=== PATIENT | female | born 1970 | race African-American/Black ===

== ENCOUNTER 2017-09-28 09:47 | Observation (INO) | payer SELFPAY ==
[2017-09-28] MEDS ORDERED: ONDANSETRON 4 MG TAB.RAPDIS PO ONE (10:09)
[2017-09-28] MEDS ORDERED: NORMAL SALINE 1000 ML 1,000 ML IV ONE (10:09)
[2017-09-28] MEDS ORDERED: ACETAMINOPHEN 325 MG TABLET PO ONE (10:09)
--- NOTE | 2017-09-28 10:11 | ER Document Report ---
ED Medical Screen (RME) - General Chief Complaint: Abdominal Pain Stated Complaint: ABDOMINAL PAIN Time Seen by Provider: 09/28/17 10:07 Mode of Arrival: Wheelchair Information source: Patient Notes: 46 yr old female presents with complaints of RUQ pain as of 730 this morning associated with nausea denies any fevers or chills , denies any previous abd pain I have greeted and performed a rapid initial assessment of this patient. A comprehensive ED assessment and evaluation of the patient, analysis of test results and completion of the medical decision making process will be conducted by additional ED providers. PHYSICAL EXAMINATION: GENERAL: Well-appearing, well-nourished and in acute distress. HEAD: Atraumatic, normocephalic. EYES: Pupils equal round extraocular movements intact, conjunctiva are normal. ENT: Nares patent NECK: Normal range of motion LUNGS: No respiratory distress Musculoskeletal: Normal range of motion NEUROLOGICAL: Normal speech, normal gait. PSYCH: Normal mood, normal affect. SKIN: Warm, Dry, normal turgor, no rashes or lesions noted. TRAVEL OUTSIDE OF THE [place] IN LAST 30 DAYS: No - Related Data Allergies/Adverse Reactions: latex Allergy (Verified 09/28/17 09:49) Penicillins Allergy (Verified 09/28/17 09:49) Physical Exam - Vital signs Vitals: Temp Pulse Resp BP Pulse Ox 97.8 F 74 22 H 119/52 L 98 09/28/17 09:53 09/28/17 09:53 09/28/17 09:53 09/28/17 09:53 09/28/17 09:53 Course - Vital Signs Vital signs: Temp Pulse Resp BP Pulse Ox 97.8 F 74 22 H 119/52 L 98 09/28/17 09:53 09/28/17 09:53 09/28/17 09:53 09/28/17 09:53 09/28/17 09:53
--- NOTE | 2017-09-28 11:09 | RADIOLOGY REPORT (SQ) ---
EXAM DESCRIPTION: U/S ABDOMEN LIMITED W/O DOP COMPLETED DATE/TIME: 09/28/2017 10:55 am REASON FOR STUDY: RUQ pain COMPARISON: None. TECHNIQUE: Dynamic and static grayscale images acquired of the abdomen and recorded on PACS. Additio nal selected color Doppler and spectral images recorded. LIMITATIONS: Midline bowel gas, body habitus FINDINGS: PANCREAS: Not visualized LIVER: No masses. Echotexture normal. LIVER VASCULATURE: Normal directional flow of the main portal vein and hepatic veins. GALLBLADDER: Multiple shadowing stones are present in the gallbladder. Borderline gallbladder wall t hickening. No pericholecystic fluid. Positive sonographic Lester's sign ULTRASOUND-DETECTED LESTER'S SIGN: Positive INTRAHEPATIC DUCTS AND COMMON DUCT: CBD and intrahepatic ducts normal caliber. No filling defects. D istal common bile duct at the duodenum not well seen. INFERIOR VENA CAVA: Normal flow. AORTA: No aneurysm. RIGHT KIDNEY: Normal size. Normal echogenicity. No solid or suspicious masses. No hydronephrosis. No calcifications. PERITONEAL AND RIGHT PLEURAL SPACE: No ascites or effusions. OTHER: No other significant findings. IMPRESSION: Multiple stones in the gallbladder. Borderline gallbladder wall thickening without carola cholecystic fluid. Positive sonographic Lester's sign TECHNICAL DOCUMENTATION: JOB ID: [id number] [employer]- All Rights Reserved Reading location - IP/workstation name: [email or web address]
[2017-09-28] MEDS ORDERED: FENTANYL CITRATE INJ/PF 100 MCG/2 ML AMPUL IV ONE (11:20)
--- NOTE | 2017-09-28 11:21 | ER Document Report ---
ED GI/ - General Chief Complaint: Abdominal Pain Stated Complaint: ABDOMINAL PAIN Time Seen by Provider: 09/28/17 10:07 Mode of Arrival: Wheelchair Information source: Patient Notes: Patient presents complaining of right upper quadrant abdominal pain that started at 730 this morning. Patient reports nausea and vomiting 2 episodes. Patient denies any fever or diarrhea. Patient denies any cough or urinary symptoms. TRAVEL OUTSIDE OF THE [place] IN LAST 30 DAYS: No - HPI Patient complains to provider of: Abdominal pain, Vomiting. No: Diarrhea Onset: This morning Timing/Duration: Persistent Quality of pain: Achy Pain Level: 3 Location: RUQ Vaginal bleeding (Compared to normal period): None Associated symptoms: Loss of appetite, Vomiting. denies: Chest pain, Dysuria, Fever, Urinary hesitancy, Urinary frequency, Urinary retention, Urinary urgency , Vaginal discharge Exacerbated by: Denies Relieved by: Denies Similar symptoms previously: No Recently seen / treated by doctor: No - Related Data Allergies/Adverse Reactions: latex Allergy (Verified 09/28/17 09:49) Penicillins Allergy (Verified 09/28/17 09:49) Past Medical History - General Information source: Patient - Social History Smoking Status: Never Smoker Chew tobacco use (# tins/day): No Frequency of alcohol use: Occasional Drug Abuse: None Occupation: None Lives with: Family Family History: Reviewed & Not Pertinent Patient has suicidal ideation: No Patient has homicidal ideation: No Neurological Medical History: Reports: Other - Tremor Renal/ Medical History: Denies: Hx Peritoneal Dialysis Past Surgical History: Reports: Hx Hysterectomy Review of Systems - Review of Systems Constitutional: No symptoms reported. denies: Fever, Recent illness EENT: No symptoms reported Cardiovascular: No symptoms reported. denies: Chest pain Respiratory: No symptoms reported. denies: Cough, Hemoptysis, Short of breath Gastrointestinal: Abdominal pain, Nausea, Vomiting. denies: Diarrhea Genitourinary: No symptoms reported. denies: Dysuria, Flank pain Female Genitourinary: No symptoms reported Musculoskeletal: No symptoms reported. denies: Back pain Skin: No symptoms reported Hematologic/Lymphatic: No symptoms reported Neurological/Psychological: No symptoms reported. denies: Headaches Physical Exam - Vital signs Vitals: Temp Pulse Resp BP Pulse Ox 97.8 F 74 22 H 119/52 L 98 09/28/17 09:53 09/28/17 09:53 09/28/17 09:53 09/28/17 09:53 09/28/17 09:53 - General General appearance: Appears well, Alert In distress: None - HEENT Head: Normocephalic, Atraumatic Eyes: Normal Conjunctiva: Normal Nasal: Normal Mouth/Lips: Normal Mucous membranes: Normal Pharynx: Normal Neck: Normal, Supple. No: Lymphadenopathy - Respiratory Respiratory status: No respiratory distress Chest status: Nontender Breath sounds: Normal. No: Rales, Rhonchi, Stridor, Wheezing Chest palpation: Normal - Cardiovascular Rhythm: Regular Heart sounds: S1 appreciated, S2 appreciated Murmur: No - Abdominal Inspection: Obese Distension: No distension Bowel sounds: Normal Tenderness: Tender - RUQ Organomegaly: No organomegaly - Back Back: Normal, Nontender. No: CVA tenderness - Extremities General upper extremity: Normal inspection, Normal ROM General lower extremity: Normal inspection, Normal ROM - Neurological Neuro grossly intact: Yes Cognition: Normal Natasha Coma Scale Eye Opening: Spontaneous Buford Coma Scale Verbal: Oriented Buford Coma Scale Motor: Obeys Commands Natasha Coma Scale Total: 15 - Psychological Associated symptoms: Normal affect, Normal mood - Skin Skin Temperature: Warm Skin Moisture: Dry Skin Color: Normal Course - Re-evaluation Re-evalutation: 09/28/17 11:[address] Johnson regarding patient presentation and diagnostic evaluation. Advises starting clindamycin IV and suspects that patient will be placed on the surgical schedule today. Will be by to see patient shortly. Patient updated regarding diagnostic evaluation and plan of care. - Vital Signs Vital signs: Temp Pulse Resp BP Pulse Ox 97.6 F 65 15 124/66 96 09/28/17 16:10 09/28/17 16:10 09/28/17 16:10 09/28/17 16:10 09/28/17 16:10 - Laboratory Result Diagrams: 09/28/17 10:52 09/28/17 10:52 Laboratory results interpreted by me: 09/28/17 10:52 Glucose 115 H Labs- Entire Visit 09/28/17 09/28/17 10:52 10:52 WBC 6.5 RBC 4.67 Hgb 13.8 Hct 41.0 MCV 88 MCH 29.6 MCHC 33.7 RDW 14.0 Plt Count 214 Seg Neutrophils % 58.4 Lymphocytes % 33.4 Monocytes % 6.2 Eosinophils % 1.3 Basophils % 0.7 Absolute Neutrophils 3.8 Absolute Lymphocytes 2.2 Absolute Monocytes 0.4 Absolute Eosinophils 0.1 Absolute Basophils 0.0 Sodium 144.1 Potassium 3.8 Chloride 103 Carbon Dioxide 28 Anion Gap 13 BUN 13 Creatinine 0.75 Est GFR ( Amer) > 60 Est GFR (Non-Af Amer) > 60 Glucose 115 H Calcium 9.0 Total Bilirubin 0.8 Direct Bilirubin 0.4 Neonat Total Bilirubin Not Reportable Neonat Direct Bilirubin Not Reportable Neonat Indirect Bili Not Reportable AST 34 ALT 20 Alkaline Phosphatase 101 Total Protein 7.9 Albumin 4.0 Lipase 77.4 - Diagnostic Test Radiology reviewed: Reports reviewed Discharge - Discharge Clinical Impression: Cholecystitis Abdominal pain Qualifiers: Abdominal location: right upper quadrant Qualified Code(s): R10.11 - Right upper quadrant pain Condition: Stable Disposition: ADMITTED INPATIENT Admitting Provider: Surgicalist Unit Admitted: Medical Floor
[2017-09-28 11:22] LABS: ABSOLUTE EOSINOPHILS # (AUTO) 0.1 10^3/uL (0.0-0.6); ABSOLUTE LYMPHOCYTES (AUTO) 2.2 10^3/uL (0.5-4.7); ABSOLUTE MONOCYTES (AUTO) 0.4 10^3/uL (0.1-1.4); ABSOLUTE NEUT (AUTO) 3.8 10^3/uL (1.7-8.2); BASOPHILS % (AUTO) 0.7 % (0-2); EOSINOPHILS % (AUTO) 1.3 % (0-6); HEMOGLOBIN 13.8 g/dL (12.0-15.5); LYMPHOCYTES % (AUTO) 33.4 % (13-45); MEAN CORPUSCULAR HEMOGLOBIN 29.6 pg (27.0-33.4); MEAN CORPUSCULAR HGB CONC 33.7 g/dL (32.0-36.0); MEAN CORPUSCULAR VOLUME 88 fl (80-97); MONOCYTES % (AUTO) 6.2 % (3-13); PLATELET COUNT 214 10^3/uL (150-450); RED BLOOD COUNT 4.67 10^6/uL (3.72-5.28); SEGMENTED NEUTROPHILS % (AUTO) 58.4 % (42-78); TOTAL CELLS COUNTED % (AUTO) 100 %; WHITE BLOOD COUNT 6.5 10^3/uL (4.0-10.5)
[2017-09-28 11:43] LABS: ALANINE AMINOTRANSFERASE 20 U/L (9-52); ALKALINE PHOSPHATASE 101 U/L (38-126); ANION GAP 13 (5-19); ASPARTATE AMINO TRANSFERASE 34 U/L (14-36); BILIRUBIN,DIRECT 0.4 mg/dL (0.0-0.4); BILIRUBIN,TOTAL 0.8 mg/dL (0.2-1.3); BLOOD UREA NITROGEN 13 mg/dL (7-20); CARBON DIOXIDE 28 mmol/L (22-30); CHLORIDE 103 mmol/L (98-107); GLUCOSE 115 mg/dL (75-110); LIPASE 77.4 U/L (23-300); POTASSIUM 3.8 mmol/L (3.6-5.0); SODIUM 144.1 mmol/L (137-145); TOTAL PROTEIN 7.9 g/dL (6.3-8.2)
[2017-09-28] MEDS ORDERED: CLINDAMYCIN 600 MG/D5W RTU 600 MG/50 ML RTUPB IV ONE (11:54)
[2017-09-28] MEDS ORDERED: RINGERS SOLUTION,LACTATED 1,000 ML IV ONE (11:59)
[2017-09-28] MEDS ORDERED: KETOROLAC TROMETHAMINE INJ/PF 30 MG/1 ML SDV IV PRN ×2 (13:41→20:12)
--- NOTE | 2017-09-28 13:47 | PDOC H&P ---
History of Present Illness Admission Date/PCP: 09/28/17 12:22 Patient complains of: Abdominal pain History of Present Illness: TOAN DELGADILLO is a 46 year old female Who presents emergency department complaining of acute onset abdominal postprandial approximately 3:00 this morning. This is associated with nausea and no significant change in bowel habits. Because of persisting pain she came to the emergency department where she was found to have right upper quadrant tenderness, and a gallbladder ultrasound was obtained which showed cholelithiasis. Surgery was consulted and the patient was advised admission. Patient has a family history of gallbladder disease. Past Medical History Past Medical History: Hand tremor; Past Surgical History Past Surgical History: Reports: Hysterectomy Social History Information Source: Patient Lives with: Family Smoking Status: Never Smoker Frequency of Alcohol Use: Rare Hx Recreational Drug Use: No Hx Prescription Drug Abuse: No Family History Parental Family History Reviewed: Yes Children Family History Reviewed: Yes Sibling(s) Family History Reviewed.: Yes Medication/Allergy Allergies/Adverse Reactions: latex Allergy (Verified 09/28/17 09:49) Penicillins Allergy (Verified 09/28/17 09:49) Review of Systems Constitutional: ABSENT: chills, fever(s), headache(s), weight gain, weight loss Eyes: ABSENT: visual disturbances Ears: ABSENT: hearing changes Cardiovascular: ABSENT: chest pain, dyspnea on exertion, edema, orthropnea, palpitations Respiratory: ABSENT: cough, hemoptysis Gastrointestinal: PRESENT: as per HPI, bloating, coffee ground emesis, dysphagia , heartburn, melena, other. ABSENT: abdominal pain, constipation, diarrhea, hematemesis, hematochezia, nausea, vomiting Genitourinary: ABSENT: dysuria, hematuria Musculoskeletal: ABSENT: joint swelling Physical Exam Vital Signs: Temp Pulse Resp BP Pulse Ox 97.8 F 74 22 H 119/52 L 98 09/28/17 09:53 09/28/17 09:53 09/28/17 09:53 09/28/17 09:53 09/28/17 09:53 General appearance: PRESENT: no acute distress Head exam: PRESENT: normocephalic Eye exam: PRESENT: EOMI Mouth exam: PRESENT: dry mucosa Neck exam: PRESENT: full ROM Respiratory exam: PRESENT: clear to auscultation kimmie Cardiovascular exam: PRESENT: RRR Pulses: PRESENT: normal carotid pulses, normal radial pulses, normal femoral pulses GI/Abdominal exam: PRESENT: other - Tender right upper quadrant with mild guarding; no no peritoneal signs otherwise Extremities exam: PRESENT: full ROM Musculoskeletal exam: PRESENT: ambulatory Neurological exam: PRESENT: alert, awake, oriented to person, oriented to place Psychiatric exam: PRESENT: appropriate affect Results Impressions: Abdomen Ultrasound 09/28/17 10:10 IMPRESSION: Multiple stones in the gallbladder. Borderline gallbladder wall thickening without pericholecystic fluid. Positive sonographic Lester's sign Status: Imported from PACS Assessment & Plan - Diagnosis (1) Cholecystitis Is this a current diagnosis for this admission?: Yes Plan: Patient's clinical picture, radiographic imaging all consistent with symptomatic cholelithiasis with cholecystitis. Recommendations: Laparoscopic cholecystectomy, possible open, 1 hour, [facility], main operating room, general anesthesia; we discussed the risks benefits and alternatives of planned procedure including bleeding, infection, bile duct injury, bile leak, need for additional surgery. Patient is not at increased risk for any these known potential complications. Versus understanding and agrees to proceed. She will likely be admitted overnight and discharged home tomorrow. Return to work status also discussed with the patient. - Time Time Spent: 50 to 70 Minutes Critical Time spent with patient: 15-24 minutes Medications reviewed and adjusted accordingly: Yes Anticipated discharge: Home - Inpatient Certification Based on my medical assessment, after consideration of the patient's comorbidities, presenting symptoms, or acuity I expect that the services needed warrant INPATIENT care.: Yes I certify that my determination is in accordance with my understanding of Medicare's requirements for reasonable and necessary INPATIENT services [42 CFR 412.3e].: Yes Medical Necessity: Need For IV Fluids, Need for Pain Control, Need for IV Antibiotics, Need for Surgery
[2017-09-28] MEDS ORDERED: VECURONIUM BROMIDE INJ 10 MG VIAL IV ONE (14:17)
[2017-09-28] MEDS ORDERED: GLYCOPYRROLATE INJ 0.4 MG/2 ML VIAL ONE (14:17)
[2017-09-28] MEDS ORDERED: ONDANSETRON HCL INJ/PF 4 MG/2 ML SDV ONE (14:17)
[2017-09-28] MEDS ORDERED: SUCCINYLCHOLINE CHLORIDE INJ 200 MG/10 ML VIAL ONE (14:17)
[2017-09-28] MEDS ORDERED: KETOROLAC TROMETHAMINE 60 MG/2 ML SDV ONE (14:17)
[2017-09-28] MEDS ORDERED: NEOSTIGMINE METHYLSULFATE 10 MG/10 ML VIAL ONE (14:17)
[2017-09-28] MEDS ORDERED: LIDOCAINE 2% INJ-PF (20 MG/ML) 10 ML AMPUL ONE (18:27)
[2017-09-28] MEDS ORDERED: FENTANYL CITRATE INJ/PF 100 MCG/2 ML AMPUL ONE ×3 (18:27→20:16)
[2017-09-28] MEDS ORDERED: DEXAMETHASONE SOD PHOSPHATE INJ 4 MG/1 ML VIAL ONE (18:28)
[2017-09-28] MEDS ORDERED: PROPOFOL INJ 200 MG/20 ML VIAL IV ONE (18:28)
[2017-09-28] MEDS ORDERED: MIDAZOLAM 2 MG/2 ML INJ ONE (18:28)
[2017-09-28] MEDS ORDERED: ACETAMINOPHEN 1,000 MG/100 ML RTUPB IV ONE ×2 (18:28→18:29)
[2017-09-28] MEDS ORDERED: BUPIVACAINE HCL 0.25 % INJ/PF (2.5 MG/1 ML) 30 ML VIAL ONE (19:07)
[2017-09-28] MEDS ORDERED: CLINDAMYCIN PHOSPHATE INJ 300 MG/2 ML SDV ONE (19:18)
[2017-09-28] MEDS ORDERED: DIPHENHYDRAMINE HCL 50 MG/ML VIAL IV PRN (19:39)
[2017-09-28] MEDS ORDERED: MORPHINE SULFATE 10 MG/ML INJ IV PRN (19:39)
[2017-09-28] MEDS ORDERED: PROMETHAZINE HCL INJ 25 MG/1 ML VIAL IV PRN ×2 (19:39)
[2017-09-28] MEDS ORDERED: MEPERIDINE HCL/PF INJ 25 MG/1 ML DISP.SYRIN IV PRN (19:39)
[2017-09-28] MEDS ORDERED: FENTANYL CITRATE INJ/PF 100 MCG/2 ML AMPUL IV PRN ×3 (19:39)
[2017-09-28] MEDS ORDERED: OXYCODONE-ACETAMINOPHEN 5-325 MG TABLET PO PRN ×2 (19:39)
[2017-09-28] MEDS ORDERED: ONDANSETRON HCL INJ/PF 4 MG/2 ML SDV IV PRN ×2 (19:39→20:12)
[2017-09-28] MEDS ORDERED: KETOROLAC TROMETHAMINE 10 MG TABLET PO PRN (20:12)
--- NOTE | 2017-09-28 20:20 | Operative Report ---
Operative Report DATE OF SURGERY: 09/28/17 PREOPERATIVE DIAGNOSIS: Symptomatic cholelithiasis w/ cholecystitis POSTOPERATIVE DIAGNOSIS: same OPERATION: Laparoscopic cholecystectomy SURGEON: VANE ANGUIANO ANESTHESIA: GA TISSUE REMOVED OR ALTERED: GB COMPLICATIONS: none ESTIMATED BLOOD LOSS: scant INTRAOPERATIVE FINDINGS: see below PROCEDURE: After obtaining informed consent, the patient was taken to the operating room. General Anesthesia was induced; the arms were extended, and the abdomen was exposed, and prepped and draped in a sterile fashion. Instrumentation was set up for laparoscopic cholecystectomy. Surgical plan and surgical timeout were conducted. A vertical incision was made above the umbilicus, and a verres needle was inserted uneventfully into the peritoneal cavity. Pneumoperitoneum was established. The verres needle was removed and a 5 mm trocar was inserted and a 5 mm flexible laparoscope was inserted. Visualization of the peritoneal cavity confirmed safe uneventful entry. Under direct visualization 3 additional 5 mm ports were established, one in the subxiphoid position and second in the subcostal position. Visualization of the hepatobiliary anatomy revealed no anatomic variations. A grasper was placed on the fundus of the gallbladder and the gallbladder is elevated over the right surface of the liver; a second grasper was used to grasp the infundibulum of the gallbladder. The neck of the gallbladder and junction with the cystic duct was dissected out. Photos taken; The Cystic artery was in its usual location medial and cephalad to the cystic duct. The cystic artery was surrounded with a right angle clamp, clipped twice proximally and divided with laparoscopic scissors. We now opened the triangle of Calot by dividing the peritoneal reflection on both the medial and lateral sides of the cystic duct infundibular junction. The critical view was obtained. We now milked the cystic duct of any possible stones, clipped the cystic duct approximately 2 times once distally and divided with scissors. The gallbladder was now removed from the undersurface of the liver using hook cautery dissection. Graspers were repositioned and the gallbladder was removed uneventfully from the abdominal cavity through the super umbilical port site incision. The specimen was examined, then passed off to pathology for permanent analysis. We returned to the peritoneal cavity check for bleeding and there was a small area of bleeding from the liver edge, and this was treated with surgicel; we checked for evidence of bile leak, and there was none. We Confirmed satisfactory placement of clips on cystic duct and cystic artery were secured . At this point we felt the operation was complete. The subcutaneous tissue was then anesthetized with quarter percent Marcaine Sponge and needle counts are correct. All ports removed under direct visualization pneumoperitoneum evacuated, and 5 mm port wounds closed with 3-0 Vicryl suture, benzoin and Steri -Strips. The patient was extubated, and taken to the recovery room in stable condition.
--- NOTE | 2017-09-29 09:24 | PDOC PROGRESS REPORT ---
Subjective Progress Note for:: 09/29/17 Subjective:: comfortable, tolerating po well Reason For Visit: SYMPTOMATIC CHOLELITHIASIS WITH CHOLECYSTITIS Physical Exam Vital Signs: Temp Pulse Resp BP Pulse Ox 97.9 F 71 18 106/50 L 98 09/29/17 04:00 09/29/17 04:00 09/29/17 04:00 09/29/17 04:00 09/29/17 04:00 Intake & Output 09/28/17 09/29/17 09/30/17 06:59 06:59 06:59 Intake Total 2380 Output Total 1825 Balance 555 Weight 91.3 kg General appearance: PRESENT: no acute distress Respiratory exam: PRESENT: clear to auscultation kimmie Cardiovascular exam: PRESENT: RRR GI/Abdominal exam: PRESENT: normal bowel sounds, soft, other - incisions c/d/i Results Impressions: Abdomen Ultrasound 09/28/17 10:10 IMPRESSION: Multiple stones in the gallbladder. Borderline gallbladder wall thickening without pericholecystic fluid. Positive sonographic Lester's sign Assessment & Plan - Diagnosis (1) Cholecystitis Is this a current diagnosis for this admission?: Yes (2) Abdominal pain Qualifiers: Abdominal location: right upper quadrant Qualified Code(s): R10.11 - Right upper quadrant pain Is this a current diagnosis for this admission?: Yes - Plan Summary Plan Summary: A/ POD#1 after lap heidy patient doing well PE unremarkable P/ Home today follow up in 2 weeks regular diet resume home meds resume all activities as tolerated shower only x 2 weeks, then can bathe no wound care needed Tylenol and Aleve over the counter as needed for pain
--- NOTE | 2017-09-29 09:44 | DISCHARGE SUMMARY E ---
Discharge Summary NAME: TOAN DELGADILLO : 1970 AGE: 46Y ADMITTED: 09/28/2017 DISCHARGED: 09/29/2017 FINAL DIAGNOSIS: Acute cholecystitis, cholelithiasis. PROCEDURE: On September 28, the patient underwent laparoscopic cholecystectomy COMPLICATIONS: None. HOSPITAL COURSE: This is a 46-year-old -[place] female, who presented to emergency room complaining of right upper quadrant pain. An ultrasound of the abdomen was done revealing cholelithiasis. The patient was taken to surgery same day and underwent an uneventful laparoscopic cholecystectomy. She was advanced to third floor. Her postoperative course was unremarkable. Vital signs remained stable. Physical exam was unremarkable. Abdomen soft with normal bowel sounds. Incision was clean, dry, intact. Patient was able to tolerate p.o. well. DISCHARGE ORDERS: The patient discharged home on 09/29/17. She was instructed to rest at home today. Resume all activities tomorrow including light exercise. No heavy lifting more than 10 pounds for about 2 weeks. Shower only for 2 weeks, afterwards the patient can bathe. Tylenol and Aleve [id number] p.r.n. for pain. Follow up in surgery clinic in 2 weeks. Resume regular diet and home medications as preoperatively. DICTATING PHYSICIAN: JESSY MÁRQUEZ M.D. [id number] [facility]#: [id number] ID: [id number] JOB#: [id number] ACCT: [id number] cc:Deondre FRASER M.D. > MTDD
[2017-09-29 11:29] VITALS: BP 106/50
== END 2017-09-29 13:05 | disposition home or self-care (01) ==
LOC: ER 09:47 → INTOOBSV 12:22 → EH 12:22 → UNDOADMIN 12:22 → 2N 15:10
PROVIDERS: ATTEND Surgery
PROC: 0FT44ZZ Resection of Gallbladder, Percutaneous Endoscopic Approach (ICD-10-PCS; principal; 2017-09-28 17:30)
DX: K80.10 Calculus of gallbladder with chronic cholecystitis without obstruction (principal); R10.11 Right upper quadrant pain; E66.9 Obesity, unspecified; Z68.34 Body mass index [BMI] 34.0-34.9, adult; Z90.710 Acquired absence of both cervix and uterus
CPT/HCPCS: 99285; 96361; 96365; 36415; 83690; 85025; 80053; 88304 ×2; 76705; 47562; G0378 ×3; J2250; J3490 ×3; J1100; J1885 ×2; S0119; J3010; J0330; J2405; J7030; J7120; J2704; J0131; 790

== ENCOUNTER 2018-07-21 15:26 | Emergency (ER) | payer OTHER ==
[2018-07-21] MEDS ORDERED: ACETAMINOPHEN 325 MG TABLET PO ONE (18:24)
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
[2018-07-21] MEDS ORDERED: ONDANSETRON 4 MG TAB.RAPDIS PO ONE (22:14)
[2018-07-21] MEDS ORDERED: OXYCODONE HCL IR 5 MG TABLET PO ONE (22:14)
[2018-07-21 22:24] VITALS: BP 116/63
--- NOTE | 2018-07-22 08:45 | EKG REPORT ---
SEVERITY:- BORDERLINE ECG - SINUS RHYTHM NONSPECIFIC ST-T CHANGES- INFERIOR LEADS : Confirmed by: Mauro Castanon MD 22-Jul-2018 08:44:18
== END 2018-07-21 22:26 | disposition home or self-care (01) ==
LOC: ER 15:26
DX: S09.90XA Unspecified injury of head, initial encounter (principal); S16.1XXA Strain of muscle, fascia and tendon at neck level, initial encounter; R07.9 Chest pain, unspecified; M54.9 Dorsalgia, unspecified; V43.52XA Car driver injured in collision with other type car in traffic accident, initial encounter; Z91.040 Latex allergy status; Z88.0 Allergy status to penicillin; Z90.710 Acquired absence of both cervix and uterus
CPT/HCPCS: 93005; 71046; 99284; 72110; 73590; 70450; 72125; 93010; L0120; S0119

== ENCOUNTER → 2018-08-04 | Outpatient (CLI) | payer SELFPAY ==
--- NOTE | 2018-08-04 15:10 | WOMENS IMAGING REPORT ---
EXAM DESCRIPTION: U/S THYROID/ST TIS HEAD NECK COMPLETED DATE/TIME: 08/04/2018 2:00 pm REASON FOR STUDY: E04.1 NONTOXIC SINGLE THYROID NODULE E04.1 NONTOXIC SINGLE THYROID NODULE COMPARISON: 07/21/2018 CT. TECHNIQUE: Dynamic and static gallagher-scale images acquired of the thyroid gland. Selected additional c olor/power Doppler images recorded. All images stored to PACS. LIMITATIONS: None. FINDINGS: RIGHT LOBE: Unremarkable in size measuring 4.7 x 1.2 x 1.6 cm. There is a 2.1 x 0.9 x 1.4 cm heterogeneous hypoechoic nodule within the lower pole. There is increased vascularity and graphic design intern al calcifications. No additional nodules. LEFT LOBE: Unremarkable in size measuring 4.3 x 1.3 x 1.3 cm. Homogeneous echotexture. No cystic or solid masses. ISTHMUS: Unremarkable in size measuring 4 mm. Small subcentimeter cyst. Otherwise normal echotextur e. OTHER: No other significant finding. IMPRESSION: 2.1 x 0.9 x 1.4 cm nodule within the inferior right thyroid which meet criteria for biop sy. TECHNICAL DOCUMENTATION: JOB ID: [id number] [employer]- All Rights Reserved Reading location - IP/workstation name: [email or web address]
== END ==
LOC: WI 13:59
PROVIDERS: ATTEND Nurse Practitioner Family
DX: E04.1 Nontoxic single thyroid nodule (principal)
CPT/HCPCS: 76536

== ENCOUNTER 2018-11-15 09:41 | Emergency (ER) | payer SELFPAY ==
[2018-11-15] MEDS ORDERED: KETOROLAC TROMETHAMINE INJ/PF 30 MG/1 ML SDV IV ONE (10:03)
[2018-11-15] MEDS ORDERED: ONDANSETRON HCL INJ/PF 4 MG/2 ML SDV IV ONE (10:03)
[2018-11-15] MEDS ORDERED: NORMAL SALINE 1000 ML 1,000 ML IV ONE (10:04)
--- NOTE | 2018-11-15 10:05 | ER Document Report ---
ED Medical Screen (RME) - General Chief Complaint: Flank Pain Stated Complaint: BLOOD IN URINE Time Seen by Provider: 11/15/18 10:00 Primary Care Provider: FIDEL ADAMS FNP-C [Primary Care Provider] - Follow up as needed Mode of Arrival: Ambulatory Information source: Patient Notes: Patient is a 48-year-old female presenting to the emergency department with flan k pain and blood in her urine. Patient reports blood was first noticed in her urine 3 days ago. She reports this morning she had onset of right-sided flank pain that radiates now around to her right lower quadrant. She denies any history of kidney stones. She denies any dysuria, nausea, vomiting, diarrhea or fevers. Exam: Patient appears well, nontoxic and in no acute distress. Tenderness to palpation to right lumbar paraspinous area and right lower quadrant. I have greeted and performed a rapid initial assessment of this patient. A comprehensive ED assessment and evaluation of the patient, analysis of test results and completion of the medical decision making process will be conducted by additional ED providers. I have specifically instructed the patient or family members with the patient to immediately return to any nursing staff should anything change in the patient's condition or with their chief complaint. This medical record was dictated with voice recognizing software. There may be grammatical, syntax errors that are unintended. TRAVEL OUTSIDE OF THE [place] IN LAST 30 DAYS: No - Related Data Allergies/Adverse Reactions: latex Allergy (Verified 07/21/18 21:00) Penicillins Allergy (Verified 07/21/18 21:00) Past Medical History Renal/ Medical History: Denies: Hx Peritoneal Dialysis Past Surgical History: Reports: Hx Hysterectomy Physical Exam - Vital signs Vitals: Temp Pulse Resp BP Pulse Ox 98.0 F 66 20 127/72 H 97 11/15/18 09:46 11/15/18 09:46 11/15/18 09:46 11/15/18 09:46 11/15/18 09:46 Course - Vital Signs Vital signs: Temp Pulse Resp BP Pulse Ox 98.0 F 66 20 127/72 H 97 11/15/18 09:46 11/15/18 09:46 11/15/18 09:46 11/15/18 09:46 11/15/18 09:46 Doctor's Discharge - Discharge Referrals: ADAMS,FIDEL W, [employer] PLANNING ENGINEER-C [Primary Care Provider] - Follow up as needed
[2018-11-15 10:38] LABS: APPEARANCE,URINE SLIGHTLY-CLOUDY; BILIRUBIN,URINE NEGATIVE (NEGATIVE); COLOR,URINE YELLOW; GLUCOSE, URINE NEGATIVE (NEGATIVE); KETONES,URINE NEGATIVE (NEGATIVE); LEUKOCYTE ESTERASE,URINE LARGE (NEGATIVE); NITRITE,URINE NEGATIVE (NEGATIVE); PROTEIN,URINE NEGATIVE (NEGATIVE); URINE SPECIFIC GRAVITY 1.009; UROBILINOGEN,URINE NEGATIVE mg/dL (<2.0)
[2018-11-15 10:41] LABS: ABSOLUTE BASOPHILS # (AUTO) 0.1 10^3/uL (0.0-0.2); ABSOLUTE EOSINOPHILS # (AUTO) 0.1 10^3/uL (0.0-0.6); ABSOLUTE LYMPHOCYTES (AUTO) 3.7 10^3/uL (0.5-4.7); ABSOLUTE MONOCYTES (AUTO) 0.5 10^3/uL (0.1-1.4); ABSOLUTE NEUT (AUTO) 3.6 10^3/uL (1.7-8.2); EOSINOPHILS % (AUTO) 1.3 % (0-6); HEMATOCRIT 43.5 % (36.0-47.0); HEMOGLOBIN 14.8 g/dL (12.0-15.5); LYMPHOCYTES % (AUTO) 46.2 % (13-45); MEAN CORPUSCULAR HGB CONC 33.9 g/dL (32.0-36.0); MEAN CORPUSCULAR VOLUME 89 fl (80-97); MONOCYTES % (AUTO) 6.2 % (3-13); PLATELET COUNT 216 10^3/uL (150-450); RED BLOOD COUNT 4.92 10^6/uL (3.72-5.28); RED CELL DISTRIBUTION WIDTH 14.1 % (11.5-14.0); SEGMENTED NEUTROPHILS % (AUTO) 45.3 % (42-78); TOTAL CELLS COUNTED % (AUTO) 100 %
[2018-11-15 10:43] LABS: ALBUMIN 4.7 g/dL (3.5-5.0); ALKALINE PHOSPHATASE 100 U/L (38-126); ANION GAP 12 (5-19); ASPARTATE AMINO TRANSFERASE 30 U/L (14-36); BILIRUBIN,DIRECT 0.2 mg/dL (0.0-0.4); BILIRUBIN,TOTAL 0.7 mg/dL (0.2-1.3); BLOOD UREA NITROGEN 12 mg/dL (7-20); CALCIUM 9.9 mg/dL (8.4-10.2); CARBON DIOXIDE 31 mmol/L (22-30); CHLORIDE 96 mmol/L (98-107); GLUCOSE 103 mg/dL (75-110); POTASSIUM 4.3 mmol/L (3.6-5.0); TOTAL PROTEIN 8.8 g/dL (6.3-8.2)
--- NOTE | 2018-11-15 11:39 | ER Document Report ---
ED General - General Chief Complaint: Flank Pain Stated Complaint: BLOOD IN URINE Time Seen by Provider: 11/15/18 10:00 Primary Care Provider: FIDEL ADAMS FNP-C [NO LOCAL MD] - Follow up as needed Mode of Arrival: Ambulatory TRAVEL OUTSIDE OF THE [place] IN LAST 30 DAYS: No - HPI Notes: Patient is a 48-year-old female who presents emergency department for evaluation of blood in her urine. She states is at the end of urination only, visible on the toilet paper. She denies any fevers, although she states she has been having hot and cold chills. No nausea or vomiting. Eating and drinking normally. Normal bowel movements. She states she has had some vaginal discharge. She is been self treating intermittently with yeast infection medication without any significant improvement. Her last sexual encounter was April 2012. She denies any history of STDs or vaginal lesions. - Related Data Allergies/Adverse Reactions: latex Allergy (Verified 07/21/18 21:00) Penicillins Allergy (Verified 07/21/18 21:00) Past Medical History - General Information source: Patient - Social History Smoking Status: Never Smoker Chew tobacco use (# tins/day): No Drug Abuse: None Family History: Malignancy - Breast cancer, non-Hodgkin's lymphoma, Other - SLE Patient has suicidal ideation: No Patient has homicidal ideation: No - Medical History Medical History: Negative Notes: Essential tremor Renal/ Medical History: Denies: Hx Peritoneal Dialysis Past Surgical History: Reports: Hx Hysterectomy Review of Systems - Review of Systems Constitutional: See HPI EENT: No symptoms reported Cardiovascular: No symptoms reported Respiratory: No symptoms reported Gastrointestinal: No symptoms reported Genitourinary: See HPI Female Genitourinary: See HPI Musculoskeletal: No symptoms reported Skin: No symptoms reported Neurological/Psychological: No symptoms reported Physical Exam - Vital signs Vitals: Temp Pulse Resp BP Pulse Ox 98.0 F 66 20 127/72 H 97 11/15/18 09:46 11/15/18 09:46 11/15/18 09:46 11/15/18 09:46 11/15/18 09:46 - Notes Notes: Vital signs reviewed, please refer to chart. Head is normocephalic, atraumatic. Pupils equal round, reactive to light. Neck is supple without meningismus. Heart is regular rate and rhythm. Lungs are clear to auscultation bilaterally. Abdomen is soft, nontender, normoactive bowel sounds throughout. Extremities without cyanosis, clubbing. Posterior calves are nontender. Peripheral pulses are equal. Skin is warm and dry. Patient is awake, alert, neurological exam is nonfocal. Gynecological exam performed. EVELYN Sofia, present as tour manager. Large amount of green appearing vaginal discharge noted in the vault. Cervix is closed. No cervical motion tenderness noted. Course - Re-evaluation Re-evalutation: 11/15/18 13:53 Patient presents emergency department for evaluation. Her findings are most consistent with urethritis. Urine sent for culture. We will go ahead and treat her with Bactrim. Because of the large amount of vaginal discharge, I did go ahead and empirically treat her for gonorrhea and chlamydia. Patient was notified of this. Given the large bacteria as well, will treat for bacterial vaginosis. We will send her home with a prescription for MetroGel. Otherwise she is to follow-up with primary care, return to the ED with worsening or concerning symptoms of any sort. - Vital Signs Vital signs: Temp Pulse Resp BP Pulse Ox 98.0 F 66 20 127/72 H 97 11/15/18 09:46 11/15/18 09:46 11/15/18 09:46 11/15/18 09:46 11/15/18 09:46 - Laboratory Result Diagrams: 11/15/18 10:10 11/15/18 10:10 Laboratory results interpreted by me: 11/15/18 11/15/18 11/15/18 10:10 10:10 10:10 RDW 14.1 H Lymphocytes % 46.2 H Chloride 96 L Carbon Dioxide 31 H Total Protein 8.8 H Urine Blood LARGE H Ur Leukocyte Esterase LARGE H Discharge - Discharge Clinical Impression: Urethritis, Bacterial vaginosis Condition: Stable Disposition: HOME, SELF-CARE Instructions: Urinary Tract Infection ([facility]), Vaginosis, Bacterial ([facility]) Additional Instructions: Take all the antibiotics as prescribed until gone. Stay well-hydrated. Follow- up with primary care next week. Return to the emergency department with worsening or new concerning symptoms. Referrals: FIDEL ADAMS FNP-C [NO LOCAL MD] - Follow up as needed
[2018-11-15] MEDS ORDERED: CEFTRIAXONE INJ 250 MG VIAL IV ONE (13:06)
[2018-11-15] MEDS ORDERED: AZITHROMYCIN 250 MG TABLET PO ONE (13:07)
[2018-11-15 13:18] LABS: T.VAGINALIS (WET MOUNT) NO TRICHOMONAS SEEN; YEAST (WET MOUNT) NO YEAST SEEN
[2018-11-15 13:19] LABS: BACTERIA (WET MOUNT) 3+ BACTERIA SEEN; RBCS (WET MOUNT) FEW RBCS SEEN; WBCS (WET MOUNT) 4+ WBCS SEEN
[2018-11-15 14:46] LABS: CHLAM PCR NOT DETECTED (NOT DETECT)
[2018-11-15 15:31] VITALS: BP 106/69
== END 2018-11-15 15:31 | disposition home or self-care (01) ==
LOC: ER 09:41
DX: N76.0 Acute vaginitis (principal); B96.89 Other specified bacterial agents as the cause of diseases classified elsewhere; N34.2 Other urethritis; R10.9 Unspecified abdominal pain; R31.9 Hematuria, unspecified; Z91.040 Latex allergy status; Z88.0 Allergy status to penicillin; Z90.710 Acquired absence of both cervix and uterus
CPT/HCPCS: 36415; 87086; 87210; 83690; 84703; 85025; 80053; 81001; 87491; 87591; J1885; J2405; J7030; J0696

== ENCOUNTER 2020-04-02 10:28 | Emergency (ER) | payer OTHER ==
--- NOTE | 2020-04-02 11:00 | ER Document Report ---
ED Medical Screen (RME) - General Chief Complaint: Sore Throat Stated Complaint: SORE THROAT,COUGH,SHORT OF BREATH TRAVEL OUTSIDE OF THE [place] IN LAST 30 DAYS: No - HPI Notes: 04/02/20 10:59 Rapid Medical Exam HPI: This is a 49-year-old female who presents to the ER complaining of shortness of breath and sore throat. Patient was diagnosed with Covid about 1 month ago and says her shortness of breath is continued to worsen. Denies any chest pain. She is tolerating p.o. intake. No known new sick contacts. She denies fever, chills, abdominal pain, nausea vomiting diarrhea. Physical Exam: GENERAL: Well-appearing, well-nourished and in no acute distress. HEAD: Atraumatic, normocephalic. ENT: Moist mucous membranes. RESP: Respirations even and unlabored CV- Regular rate. NEURO: No focal neurological deficits. Moves all extremities spontaneously and on command. My involvement in this patients care was limited to a rapid initial assessment. A comprehensive ED assessment and evaluation of the patient, analysis of test results, treatment, and completion of the medical decision making process will be performed by other ER providers. - Related Data Allergies/Adverse Reactions: latex Allergy (Verified 07/21/18 21:00) Penicillins Allergy (Verified 07/21/18 21:00) Past Medical History - Social History Chew tobacco use (# tins/day): No Frequency of alcohol use: Rare Drug Abuse: None Renal/ Medical History: Denies: Hx Peritoneal Dialysis Past Surgical History: Reports: Hx Hysterectomy Physical Exam - Vital signs Vitals: Temp Pulse Resp BP 97.7 F 73 18 123/68 04/02/20 10:33 04/02/20 10:33 04/02/20 10:33 04/02/20 10:33 Course - Vital Signs Vital signs: Temp Pulse Resp BP Pulse Ox 97.7 F 73 18 123/68 04/02/20 10:33 04/02/20 10:33 04/02/20 10:33 04/02/20 10:33
--- NOTE | 2020-04-02 11:39 | RADIOLOGY REPORT (SQ) ---
EXAM DESCRIPTION: CHEST SINGLE VIEW IMAGES COMPLETED DATE/TIME: 04/02/2020 11:30 am REASON FOR STUDY: sob, covid 1 month ago COMPARISON: 07/21/2018 EXAM PARAMETERS: NUMBER OF VIEWS: One view. TECHNIQUE: Single frontal radiographic view of the chest acquired. RADIATION DOSE: NA LIMITATIONS: None. FINDINGS: LUNGS AND PLEURA: No opacities, masses or pneumothorax. No pleural effusion. MEDIASTINUM AND HILAR STRUCTURES: No masses. Contour normal. HEART AND VASCULAR STRUCTURES: Heart normal in size. Normal vasculature. BONES: No acute findings. HARDWARE: None in the chest. OTHER: No other significant finding. IMPRESSION: NO ACUTE RADIOGRAPHIC FINDING IN THE CHEST. TECHNICAL DOCUMENTATION: JOB ID: [id number] 2010 [employer]- All Rights Reserved Reading location - IP/workstation name: [email or web address]
[2020-04-02] MEDS ORDERED: MECLIZINE HCL 25 MG TABLET PO ONE (14:29)
--- NOTE | 2020-04-02 14:47 | EKG REPORT ---
SEVERITY:- ABNORMAL ECG - SINUS RHYTHM FIRST DEGREE AV BLOCK : Confirmed by: Britt Acosta 02-Apr-2020 14:47:02
--- NOTE | 2020-04-02 18:10 | ER Document Report ---
Entered by JESSICA HOFFMAN SCRIBE 04/02/20 1413 Acting as scribe for:EVITA MALDONADO MD ED General - General Chief Complaint: Sore Throat Stated Complaint: SORE THROAT,COUGH,SHORT OF BREATH Time Seen by Provider: 04/02/20 13:26 Mode of Arrival: Ambulatory Information source: Patient Notes: This 49 year old female patient presents to the ED today with complaints of shortness of breath and sore throat. Patient states that she tested positive for COVID on 03/08 and has been in quarantine until 03/21. She states that she was "feeling good" until about yesterday when the shortness of breath became more constant and she developed a sore throat and left frontal sinus headache. She also reports intermittent lightheadedness, post nasal drip, nonproductive cough, and bilateral ear pain that started today. Denies runny nose, or nausea/vomiting. She did not receive a flu shot. TRAVEL OUTSIDE OF THE [place] IN LAST 30 DAYS: No - Related Data Allergies/Adverse Reactions: latex Allergy (Verified 07/21/18 21:00) Penicillins Allergy (Verified 07/21/18 21:00) Past Medical History - General Information source: Patient, FORMERLY [facility], 1928–1983 Records - Social History Smoking Status: Never Smoker Cigarette use (# per day): No Chew tobacco use (# tins/day): No Smoking Education Provided: No Frequency of alcohol use: Rare Drug Abuse: None Family History: Reviewed & Not Pertinent, Malignancy - Breast cancer, non- Hodgkin's lymphoma, Other - SLE Past Surgical History: Reports: Hx Hysterectomy Review of Systems - Review of Systems Constitutional: See HPI, Recent illness EENT: See HPI, Ear pain, Sinus pressure, Throat pain. denies: Nose discharge Cardiovascular: See HPI, Lightheaded Respiratory: See HPI, Cough, Short of breath. denies: Sputum Gastrointestinal: See HPI. denies: Nausea, Vomiting Genitourinary: No symptoms reported Female Genitourinary: No symptoms reported Musculoskeletal: No symptoms reported Skin: No symptoms reported Hematologic/Lymphatic: No symptoms reported Neurological/Psychological: See HPI, Headaches -: Yes All other systems reviewed and negative Physical Exam - Vital signs Vitals: Temp Pulse Resp BP 97.7 F 73 18 123/68 04/02/20 10:33 04/02/20 10:33 04/02/20 10:33 04/02/20 10:33 Interpretation: Normal - General General appearance: Alert In distress: None - HEENT Head: Normocephalic, Atraumatic Eyes: Other - Lateral gaze nystagmus Extraocular movements intact: Yes Pupils: PERRL Tympanic membrane: Other - Bilateral TMs are pink with fluid behind them Sinus: Frontal - Left frontal sinus, Tenderness Neck: Shotty nodes - Shotty node on the right side that is tender to palpate - Respiratory Respiratory status: No respiratory distress Chest status: Nontender Breath sounds: Normal Chest palpation: Normal - Cardiovascular Rhythm: Regular Heart sounds: Normal auscultation Murmur: No - Abdominal Inspection: Normal Distension: No distension Bowel sounds: Normal Tenderness: Nontender - Abdomen soft Organomegaly: No organomegaly - Back Back: Normal, Nontender - Extremities General upper extremity: Normal inspection General lower extremity: Normal inspection. No: Edema - Neurological Neuro grossly intact: Yes Orientation: AAOx4 Natasha Coma Scale Eye Opening: Spontaneous Natasha Coma Scale Verbal: Oriented [place] Coma Scale Motor: Obeys Commands [place] Coma Scale Total: 15 - Psychological Associated symptoms: Normal affect, Normal mood - Skin Skin Temperature: Warm Skin Moisture: Dry Skin Color: Normal Course - Re-evaluation Re-evalutation: 04/02/20 18:03 Patient resting comfortably. - Vital Signs Vital signs: Temp Pulse Resp BP Pulse Ox 97.7 F 73 18 123/68 04/02/20 10:33 04/02/20 10:33 04/02/20 10:33 04/02/20 10:33 04/02/20 18:03 Vital signs stable - Laboratory Results Laboratory Results Interpreted: Labs- Entire Visit 04/02/20 04/02/20 04/02/20 11:40 14:55 14:55 Bryson Human Metapneumo PCR NOT DETECTED Adenovirus (PCR) NOT DETECTED B. pertussis DNA (PCR) NOT DETECTED B.parapertussis DNA PCR NOT DETECTED C. pneumoniae DNA (PCR) NOT DETECTED Coronavirus OC43 (PCR) NOT DETECTED Coronavirus HKU1 (PCR) NOT DETECTED Coronavirus 229E (PCR) NOT DETECTED COVID-19 Source Cancelled COVID-19 ([facility]) Cancelled Coronavirus NL63 (PCR) NOT DETECTED Influenza A (H1) PCR NOT DETECTED Influ A (H1N1/09) PCR NOT DETECTED Influenza A (H3) PCR NOT DETECTED Influenza Type A (PCR) NOT DETECTED Influenza Type B (PCR) NOT DETECTED M. pneumoniae (PCR) NOT DETECTED Parainfluenza 1 (PCR) NOT DETECTED Parainfluenza 2 (PCR) NOT DETECTED Parainfluenza 3 (PCR) NOT DETECTED Parainfluenza 4 (PCR) NOT DETECTED RSV (PCR) NOT DETECTED Entero/Rhino (PCR) NOT DETECTED SARS-CoV-2 (PCR) NOT DETECTED Group A Strep Rapid NEGATIVE Patient is negative group A strep on rapid screening also Covid testing is negative Critical Laboratory Results Reviewed: No Critical Results - Radiology Results Radiology Results Interpreted: 04/02/20 18:05 Chest X-Ray 04/02/20 10:58 IMPRESSION: NO ACUTE RADIOGRAPHIC FINDING IN THE CHEST. Chest x-ray shows no acute radiographic finding. Critical Radiology Results Reviewed: No Critical Results Discharge - Discharge Clinical Impression: Upper respiratory infection, Acute sinusitis, Acute viral labyrinthitis of both ears Condition: Stable Disposition: HOME, SELF-CARE Instructions: Meclizine ([facility]), Labyrinthitis ([facility]), Upper Respiratory Illness ([facility]) Additional Instructions: Sinusitis You have sinusitis, an infection of the sinus cavities of the face. The sinuses are air-filled chambers which open into the inside of the nose. Bacteria and pus fill a sinus, causing pain, drainage, and fever. Sinusitis is treated with antibiotics. Often, expectorants (to thin the sinus mucous) or decongestants (to reduce swelling) are prescribed as well. Healing requires seven to 10 days. Avoid chemical fumes, pollens, dusts, and smoke (especially cigarette smoke). Keep the air humidified in your bedroom and work area and take plenty of liquids by mouth. This condition can be serious if the infection spreads. If your symptoms worsen, or if you develop severe headache, high fever, stiff neck, or a rash, you must call the doctor or return for re-evaluation. Prescriptions: Meclizine HCl [Antivert 25 mg Tablet] 25 mg PO TID PRN #21 tablet PRN Reason: Methylprednisolone [Medrol Dosepack (4 mg/Tab) 21 Tab/Dosepak] 4 mg PO ASDIR PRN #21 tab.ds.pk PRN Reason: Azithromycin [Zithromax 250 mg Tablet] 250 mg PO ASDIR #6 tablet I personally performed the services described in the documentation, reviewed and edited the documentation which was dictated to the scribe in my presence, and it accurately records my words and actions.
[2020-04-02 18:24] VITALS: BP 96/68
== END 2020-04-02 18:23 | disposition home or self-care (01) ==
LOC: ER 10:28
DX: J06.9 Acute upper respiratory infection, unspecified (principal); J01.90 Acute sinusitis, unspecified; H83.03 Labyrinthitis, bilateral; J02.9 Acute pharyngitis, unspecified; R05 Cough; R06.02 Shortness of breath; R51.9 Headache, unspecified; R42 Dizziness and giddiness; R09.82 Postnasal drip; H92.03 Otalgia, bilateral; Z88.0 Allergy status to penicillin
CPT/HCPCS: 93005; 99285; 87070; 87880; 0202U ×23; 71045; 93010

== ENCOUNTER 2020-04-09 17:05 | Emergency (ER) | payer OTHER ==
[2020-04-09] MEDS ORDERED: MECLIZINE HCL 25 MG TABLET PO ONE (18:59)
--- NOTE | 2020-04-09 19:02 | ER Document Report ---
ED Medical Screen (RME) - General Chief Complaint: Dizziness Stated Complaint: DIZZINESS Time Seen by Provider: 04/09/20 18:58 Notes: HPI: 49-year-old female presenting with multiple complaints. Patient states over the last week she has had episodes of dizziness where she feels both off balance and like she cannot walk straight. Patient states that sometimes the room spins. Patient states that she was diagnosed with Covid in February was cleared technically by March 21 and had another negative Covid test last week when she came to the emergency department with the same symptoms of dizziness. States she was diagnosed with ear and sinus infection. Patient also reporting continued shortness of breath with some anterior chest discomfort over the last few days that is intermittent in nature. PHYSICAL EXAMINATION: Lung sounds are clear to auscultation regular rate and rhythm. Patient is answering questions appropriately, moving all extremities equally. On review of her record she did have a negative bio fire screening a week ago I have greeted and performed a rapid initial assessment of this patient. A comprehensive ED assessment and evaluation of the patient, analysis of test results and completion of medical decision making process will be conducted by an additional ED providers. Please note that clinical decision making for this patient was made during the 2019 pandemic of novel coronavirus which caused a si gnificant strain on the healthcare system including at this particular facility. Criteria for admission discharge and level of care decisions as well as treatment decisions have necessarily changed TRAVEL OUTSIDE OF THE [place] IN LAST 30 DAYS: No - Related Data Allergies/Adverse Reactions: latex Allergy (Verified 07/21/18 21:00) Penicillins Allergy (Verified 07/21/18 21:00) Past Medical History Renal/ Medical History: Denies: Hx Peritoneal Dialysis Past Surgical History: Reports: Hx Hysterectomy Physical Exam - Vital signs Vitals: Temp Pulse Resp BP Pulse Ox 98.1 F 84 20 122/67 98 04/09/20 17:10 04/09/20 17:10 04/09/20 17:10 04/09/20 17:10 04/09/20 17:10 Course - Vital Signs Vital signs: Temp Pulse Resp BP Pulse Ox 98.1 F 84 20 122/67 98 04/09/20 17:10 04/09/20 17:10 04/09/20 17:10 04/09/20 17:10 04/09/20 17:10
--- NOTE | 2020-04-09 19:34 | RADIOLOGY REPORT (SQ) ---
EXAM DESCRIPTION: CHEST SINGLE VIEW IMAGES COMPLETED DATE/TIME: 04/09/2020 7:26 pm REASON FOR STUDY: sob COMPARISON: 04/02/2020 EXAM PARAMETERS: NUMBER OF VIEWS: One view. TECHNIQUE: Single frontal radiographic view of the chest acquired. RADIATION DOSE: NA LIMITATIONS: None. FINDINGS: LUNGS AND PLEURA: No opacities, masses or pneumothorax. No pleural effusion. MEDIASTINUM AND HILAR STRUCTURES: No masses. Contour normal. HEART AND VASCULAR STRUCTURES: Heart normal in size. Normal vasculature. BONES: No acute findings. HARDWARE: None in the chest. OTHER: No other significant finding. IMPRESSION: NO ACUTE RADIOGRAPHIC FINDING IN THE CHEST. TECHNICAL DOCUMENTATION: JOB ID: [id number] 2010 [employer]- All Rights Reserved Reading location - IP/workstation name: [email or web address]
--- NOTE | 2020-04-09 19:37 | RADIOLOGY REPORT (SQ) ---
EXAM DESCRIPTION: CT HEAD WITHOUT IMAGES COMPLETED DATE/TIME: 04/09/2020 7:26 pm REASON FOR STUDY: dizzy COMPARISON: 07/21/2018 TECHNIQUE: Axial images acquired through the brain without intravenous contrast. Images reviewed wi th bone, brain and subdural windows. Additional sagittal and coronal reconstructions were generated. Images stored on PACS. All CT scanners at this facility use dose modulation, iterative reconstruction, and/or weight based d osing when appropriate to reduce radiation dose to as low as reasonably achievable (ALARA). [facility]: Dose Right [facility]: CareDose [facility]: Dose Right [facility]: Teradose 4D [facility]: Smart Codeanywhere RADIATION DOSE: CT Rad equipment meets quality standard of care and radiation dose reduction techniq ues were employed. CTDIvol: 53.2 mGy. DLP: 1044 mGy-cm. mGy. LIMITATIONS: None. FINDINGS: VENTRICLES: Normal size and contour. CEREBRUM: No masses. No hemorrhage. No midline shift. No evidence for acute infarction. Normal gra y/white matter differentiation. No areas of low density in the white matter. CEREBELLUM: No masses. No hemorrhage. No alteration of density. No evidence for acute infarction. EXTRAAXIAL SPACES: No fluid collections. No masses. ORBITS AND GLOBE: No intra- or extraconal masses. Normal contour of globe without masses. CALVARIUM: No fracture. PARANASAL SINUSES: No fluid or mucosal thickening. SOFT TISSUES: No mass or hematoma. OTHER: No other significant finding. IMPRESSION: NORMAL BRAIN CT WITHOUT CONTRAST. EVIDENCE OF ACUTE STROKE: NO. COMMENT: Quality ID # [id number]: Final reports with documentation of one or more dose reduction techniques (e.g., Automated exposure control, adjustment of the mA and/or kV according to patient size, use of iterative reconstruction technique) TECHNICAL DOCUMENTATION: JOB ID: [id number] 2010 [employer]- All Rights Reserved Reading location - IP/workstation name: [email or web address]
[2020-04-09 19:47] LABS: ALBUMIN 4.4 g/dL (3.5-5.0); ALKALINE PHOSPHATASE 98 U/L (38-126); ANION GAP 6 (5-19); ASPARTATE AMINO TRANSFERASE 28 U/L (14-36); BILIRUBIN,DIRECT 0.1 mg/dL (0.0-0.4); BILIRUBIN,TOTAL 0.6 mg/dL (0.2-1.3); BLOOD UREA NITROGEN 14 mg/dL (7-20); CALCIUM 9.3 mg/dL (8.4-10.2); CARBON DIOXIDE 29 mmol/L (22-30); CHLORIDE 104 mmol/L (98-107); GLUCOSE 112 mg/dL (75-110); POTASSIUM 4.3 mmol/L (3.6-5.0); TOTAL PROTEIN 8.4 g/dL (6.3-8.2)
[2020-04-09 19:51] LABS: ABSOLUTE BASOPHILS # (AUTO) 0.1 10^3/uL (0.0-0.2); ABSOLUTE EOSINOPHILS # (AUTO) 0.1 10^3/uL (0.0-0.6); ABSOLUTE LYMPHOCYTES (AUTO) 3.8 10^3/uL (0.5-4.7); ABSOLUTE MONOCYTES (AUTO) 0.4 10^3/uL (0.1-1.4); ABSOLUTE NEUT (AUTO) 2.2 10^3/uL (1.7-8.2); BASOPHILS % (AUTO) 1.1 % (0-2); EOSINOPHILS % (AUTO) 1.6 % (0-6); HEMATOCRIT 42.9 % (36.0-47.0); HEMOGLOBIN 14.3 g/dL (12.0-15.5); LYMPHOCYTES % (AUTO) 57.6 % (13-45); MEAN CORPUSCULAR HGB CONC 33.4 g/dL (32.0-36.0); MEAN CORPUSCULAR VOLUME 87 fl (80-97); PLATELET COUNT 226 10^3/uL (150-450); RED BLOOD COUNT 4.95 10^6/uL (3.72-5.28); RED CELL DISTRIBUTION WIDTH 13.9 % (11.5-14.0); SEGMENTED NEUTROPHILS % (AUTO) 33.7 % (42-78); TOTAL CELLS COUNTED % (AUTO) 100 %; WHITE BLOOD COUNT 6.6 10^3/uL (4.0-10.5)
[2020-04-10] MEDS ORDERED: MECLIZINE HCL 25 MG TABLET PO ONE (00:10)
--- NOTE | 2020-04-10 01:22 | ER Document Report ---
ED General - General Chief Complaint: Dizziness Stated Complaint: DIZZINESS Time Seen by Provider: 04/09/20 18:58 Primary Care Provider: BEN AGUILAR JR, MD [NO LOCAL MD] - Follow up as needed CYNTHIA MARTINEZ MD [NO LOCAL MD] - Follow up as needed AMEYA CLAROS MD [ACTIVE STAFF] - Follow up as needed AKOSUA ORNELAS MD [NO LOCAL MD] - Follow up as needed Notes: 49-year-old female with no significant past medical history presents with intermittent vertigo for the past week worse over the past 2 days. Approximately a week ago patient had sinus pressure and cough and was diagnosed with a sinus infection and was treated with antibiotics which she completed which improved those symptoms but the intermittent vertigo she began having at the onset of symptoms has persisted. Patient says that it comes on sometimes with head movement sometimes spontaneously and lasts for few seconds to few minutes and then resolves. Has been better when she takes meclizine, but she has not wanted to take it preemptively as it makes her drowsy. Triage note says 2 falls but this is erroneous, patient has lowered herself to the ground twice because she has been worried about falling but has not had any falls and no injuries. Patient denies constant vertigo, weakness or numbness, change in vision/speech/gait, hypertension, hyperlipidemia, diabetes, stroke history, drug use, bleeding diatheses, anticoagulation, neck pain or stiffness, fever, prior episodes TRAVEL OUTSIDE OF THE [place] IN LAST 30 DAYS: No - Related Data Allergies/Adverse Reactions: latex Allergy (Verified 07/21/18 21:00) Penicillins Allergy (Verified 07/21/18 21:00) Home Medications: meclizine x2 today. finished z-apple yesterday. Past Medical History - Social History Smoking Status: Never Smoker Family History: Reviewed & Not Pertinent, Malignancy - Breast cancer, non- Hodgkin's lymphoma, Other - SLE Renal/ Medical History: Denies: Hx Peritoneal Dialysis Past Surgical History: Reports: Hx Hysterectomy Review of Systems - Review of Systems Notes: REVIEW OF SYSTEMS: CONSTITUTIONAL : Denies fever, chills, or sweats. EENT: + recent cold/sinus symptoms, denies throat pain CARDIOVASCULAR: Denies chest pain, PATRICIA RESPIRATORY: Denies cough, denies shortness of breath. GASTROINTESTINAL: Denies abdominal pain, nausea/vomiting. GENITOURINARY: Denies difficulty urinating, painful urination. FEMALE GENITOURINARY: Denies abnormal vaginal bleeding, vaginal discharge. MUSCULOSKELETAL: Denies neck pain, back pain. SKIN: Denies rash or skin lesions. HEMATOLOGIC : Denies easy bruising or bleeding. LYMPHATIC: Denies swollen, enlarged glands. NEUROLOGICAL: Denies headache, denies change in gait. PSYCHIATRIC: Denies anxiety or stress or depression. Physical Exam - Vital signs Vitals: Temp Pulse Resp BP Pulse Ox 98.1 F 84 20 122/67 98 04/09/20 17:10 04/09/20 17:10 04/09/20 17:10 04/09/20 17:10 04/09/20 17:10 - Notes Notes: PHYSICAL EXAMINATION: GENERAL: Well-appearing, well-nourished and in no acute distress. HEAD: Atraumatic, normocephalic. EYES: Pupils equal round and appropriate constriction, sclera anicteric, conjunctiva are normal. ENT: nares patent, moist mucous membranes. NECK: Normal range of motion, supple without lymphadenopathy LUNGS: Breath sounds clear to auscultation bilaterally and equal. No wheezes rales or rhonchi. HEART: Regular rate and rhythm without murmurs ABDOMEN: Soft, nontender, no guarding, no masses, no CVAT EXTREMITIES: Normal range of motion, no pitting or edema. No cyanosis. NEUROLOGICAL: Awake, alert, conversing appropriately, moves all extremities spontaneously, vertigo sensation worsens when patient looks to the right or move her head to the right but no nystagmus, normal [id number] bilaterally, 5 at 5 strength and normal sensation in all extremities, cranial nerves II through XII intact bilaterally, steady narrow-based gait without ataxia PSYCH: Normal mood, normal affect. SKIN: Warm, Dry, normal turgor, no rashes or lesions noted. Course - Re-evaluation Re-evalutation: 04/10/20 01:22 Patient presents with intermittent vertigo precipitated by recent sinus infection consistent with peripheral vertigo. No constant symptoms, no stroke risk factors, hints exam not indicated as patient has intermittent vertigo. I performed Eric maneuver twice, patient currently feels improved, have warned patient not to drive or operate machinery or do other activities that would be dangerous if she suddenly lost her proprioception while she was doing them which she is in agreement with and she is already stopped driving. Will DC with ENT follow-up for vestibular therapy, standing meclizine, and return precautions. 04/10/20 01:43 The patient extensive return to ED precautions which she demonstrated understanding of, patient ready for discharge, not a fall risk at this time, tolerating p.o. patient's EKG with very nonspecific mild T wave abnormalities and first-degree block, instructed her to follow this up with her primary doctor, will also give cardiology information but no symptoms currently consistent with cardiac etiology. Patient says she still has enough meclizine does not need refill. 04/10/20 02:03 Patient now says she would like meclizine refill - Vital Signs Vital signs: Temp Pulse Resp BP Pulse Ox 97.8 F 67 17 117/52 L 100 04/10/20 02:04 04/10/20 02:04 04/10/20 02:04 04/10/20 02:04 04/10/20 02:04 - Laboratory Results Result Diagrams: 04/09/20 19:07 04/09/20 19:07 Laboratory Results Interpreted: 04/09/20 04/09/20 19:07 19:07 Lymph % (Auto) 57.6 H Seg Neutrophils % 33.7 L Glucose 112 H Total Protein 8.4 H Critical Laboratory Results Reviewed: No Critical Results - Radiology Results Critical Radiology Results Reviewed: No Critical Results - EKG Interpretation by Me Additional EKG results interpreted by me: 04/10/20 01:27 first-degree AV block, no significant ST elevations or depressions, isolated T wave flattening in V3, QTC 433 Discharge - Discharge Clinical Impression: First degree AV block Peripheral vertigo Qualifiers: Laterality: right Qualified Code(s): H81.391 - Other peripheral vertigo, right ear Disposition: HOME, SELF-CARE Additional Instructions: Vertigo You have experienced an episode of vertigo -- a whirling dizziness which may be accompanied by nausea and vomiting or staggering. Vertigo is often caused by an irritation of the inner ear, in which case it is called labyrinthitis. It can also be a symptom of a degenerating inner ear, nerve damage, or brain injury. Your physician has evaluated you to determine whether any further testing is necessary. Vertigo is often treated with dramamine or meclizine. These medications are helpful, but stronger medication may be needed if you are vomiting. Rest in bed. You should not drive or operate machinery until completely better. It may take one to three weeks for recovery. If there are new symptoms, such as decreased hearing or vision, severe headache, weakness or faintness, or confusion, call the physician. Follow-up with your primary doctor and ENT doctor within 1 week. You had some mild EKG abnormalities, you should discuss this with your primary doctor. If you have any worsening symptoms, falls, weakness or numbness, lethargy, fever, chest pain, shortness of breath, change in your vision or speech, or any other worsening or alarming symptoms return to the emergency department immediately. Prescriptions: Meclizine HCl [Antivert 25 mg Tablet] 25 mg PO TID 7 Days #21 tablet Referrals: AMEYA CLAROS MD [ACTIVE STAFF] - Follow up as needed AKOSUA ORNELAS MD [NO LOCAL MD] - Follow up as needed BEN AGUILAR JR, MD [NO LOCAL MD] - Follow up as needed CYNTHIA MARTINEZ MD [NO LOCAL MD] - Follow up as needed
[2020-04-10 02:05] VITALS: BP 117/52
--- NOTE | 2020-04-10 09:50 | EKG REPORT ---
SEVERITY:- ABNORMAL ECG - SINUS RHYTHM FIRST DEGREE AV BLOCK BORDERLINE T ABNORMALITIES, ANTERIOR LEADS : Confirmed by: Estefany Mcginnis MD 10-Apr-2020 09:50:09
== END 2020-04-10 02:10 | disposition home or self-care (01) ==
LOC: ER 17:05
DX: H81.391 Other peripheral vertigo, right ear (principal); I44.0 Atrioventricular block, first degree; Z79.899 Other long term (current) drug therapy; Z91.040 Latex allergy status; Z88.0 Allergy status to penicillin
CPT/HCPCS: 36415; 70450; 71045; 80053; 84484; 85025; 93005; 93010; 99285